=== PATIENT | male | born 1990 | race Two or more races ===

== ENCOUNTER 2016-09-19 10:57 | Emergency (ER) | payer BC ==
[2016-09-19] MEDS ORDERED: ACETAMINOPHEN 325 MG TABLET ONE (12:55)
[2016-09-19] MEDS ORDERED: IBUPROFEN 600 MG TABLET ONE (12:55)
[2016-09-19] MEDS ORDERED: DEXAMETHASONE 4 MG TABLET ONE (12:56)
[2016-09-19] MEDS ORDERED: PROCHLORPERAZINE 5 MG/ML 2 ML VIAL ONE (12:56)
[2016-09-19] MEDS ORDERED: DIPHENHYDRAMINE HCL 50 MG/1 ML VIAL ONE (12:56)
[2016-09-19] MEDS ORDERED: DEXAMETHASONE SOD PHOS 4 MG/1 ML VIAL ONE (12:57)
[2016-09-19] MEDS ORDERED: DIAZEPAM 5 MG TABLET ONE (12:57)
== END 2016-09-19 14:13 | disposition home or self-care (01) ==
LOC: ED 10:57
DX: R51 Headache (principal)
CPT/HCPCS: 99283 ×2; 96372 ×2; J1200; J0780; A9270 ×4; J1100